=== PATIENT | male | born 1975 | race African-American/Black ===

== ENCOUNTER 2017-11-03 15:46 | Emergency (ER) | payer BC ==
[~2017-11-03] VITALS: Ht 182.9 cm; Wt 142.9 kg
[2017-11-03] MEDS ORDERED: NAPROXEN 500 MG TABLET PO ONE (16:00)
--- NOTE | 2017-11-03 16:05 | ED.ADGEN ---
Adult General Chief Complaint Chief Complaint: KNEE INJURY HPI HPI Patient is a 42 year old man, who was playing basketball, states that he planted his left leg to push off in order to throw the basketball, when he felt his knee "give", he states he is not sure exactly how it gave, denies any real twisting, denies hearing a pop, states that he ended up on the floor on his buttocks. He states he was experiencing pain from the area just below the knee Extending along the medial aspect of the leg. He states that he has pain in this location "for a long time", and was wearing a elastic knee brace for support, denies any previous injuries. He denies hitting his head or other parts of his body, states he has no numbness or tingling, is complaining of pain is about 3 out of 10, with swelling in the left knee. Has been unable to stand or weight-bear since the incident occurred approximately [id number] prior to arrival. Is able to move his toes and ankle without issue, denies pain or injury and location. No other discrete injury previously. Has not taken any medication prior to coming to the ED, states he takes l-carnitine supplements, no other medications on a regular basis. Review of Systems Review of Systems Constitutional: Denies fever or chills. [] Eyes: Denies change in visual acuity. [] HENT: Denies nasal congestion or sore throat. [] Respiratory: Denies cough or shortness of breath. [] Cardiovascular: Denies chest pain or edema. [] GI: Denies abdominal pain, nausea, vomiting, bloody stools or diarrhea. [] : Denies dysuria. [] Musculoskeletal: Denies back pain, pain in the left knee and lower extremity. Integument: Denies rash. [] Neurologic: Denies headache, focal weakness or sensory changes. [] Endocrine: Denies polyuria or polydipsia. [] Lymphatic: Denies swollen glands. [] Psychiatric: Denies depression or anxiety. [] Current Medications Current Medications Current Medications Medications (Trade) Dose Ordered Sig/Anna Start Time Stop Time Status Last Admin Dose Admin Cyclobenzaprine HCl (Flexeril) 10 mg 1X ONCE 11/03/17 16:45 11/03/17 16:46 DC 11/03/17 16:46 10 MG Naproxen (Naprosyn) 500 mg 1X ONCE 11/03/17 16:00 11/03/17 16:05 DC 11/03/17 16:37 500 MG Allergies Allergies Allergies Coded Allergies Type Severity Reaction Last Updated Verified No Known Drug Allergies 11/03/17 No Physical Exam Physical Exam Constitutional: Well developed, obese, no acute distress, non-toxic appearance. [] HENT: Normocephalic, atraumatic, bilateral external ears normal, oropharynx moist, no oral exudates, nose normal. [] Eyes: PERRLA, EOMI, conjunctiva normal, no discharge. [] Neck: Normal range of motion, no tenderness, supple, no stridor. [] Cardiovascular:Heart rate regular rhythm, no murmur, S1, S2, no rubs or gallops. [] Lungs & Thorax: Bilateral breath sounds clear to auscultation, no wheezing, rhonchi, rales. No chest wall crepitus or tenderness. [] Abdomen: Bowel sounds normal, soft, no tenderness, no rebound, rigidity, no guarding, no masses, no pulsatile masses. [] Skin: Warm, dry, no erythema, no rash. [] Back: No midline tenderness, no step-offs or deformities, no paraspinal tenderness, no CVA tenderness. [] Extremities: Patient with effusion noted, tenderness palpation on the anterior aspect of the tibia, extending around the medial aspect of the knee, patella is high riding and tilted, tenderness, laxity along the tendon, concern for rupture , no tactile patient along the lateral aspect of the knee, patient is unable to flex, is moving toes and ankle without issue, no other tenderness of the patient on anterior tibia or the posterior tibial region, aside from just below the tibial plateau, no pain along the femur or hip, no pain in any other extremities, patient is moving right extremity without issue, and bilateral upper extremity is without issue, no cyanosis, no clubbing, ROM intact, no edema. [] Neurologic: Alert and oriented X 3, normal motor function, normal sensory function, no focal deficits noted. [] Psychologic: Affect normal, judgement normal, mood normal. [] Current Patient Data Vital Signs Vital Signs Date Time Temp Pulse Resp B/P (MAP) Pulse Ox O2 Delivery O2 Flow Rate FiO2 11/03/17 17:43 78 136/69 (91) 98 Room Air 12/4/17 16:37 16 11/03/17 15:54 98.3 98.3 EKG EKG Not indicated.[] Radiology/Procedures Radiology/Procedures [][place] [address] IMAGING REPORT Signed PATIENT: BETH MCCRACKEN ACCOUNT: [id number] : 1975 LOCATION: ER AGE: 42 SEX: M EXAM STATUS: PRE ER ORD. PHYSICIAN: FRANCIS PHAM DO REASON: pain/swelling PROCEDURE: KNEE LEFT 4V Examination: 4 views of the left knee History: History of injury Comparison: None available. Findings: Mild joint space loss identified in the medial compartment. There is no acute fracture or dislocation identified. No significant knee joint effusion. Mild soft tissue stranding identified medial to the medial compartment with the soft tissue. Impression: 1. No acute osseous findings 2. Questionable mild stranding identified medial to the medial compartment, underlying ligamentous injury is not completely excluded. If there are clinical symptoms of ligamentous injury, follow-up MRI can be considered. DICTATED and SIGNED BY: BRIAN MANNING MD DATE: 11/03/171634 CC: FRANCIS PHAM DO ~ Impressions: [address] [address] IMAGING REPORT Signed PATIENT: BETH MCCRACKEN ACCOUNT: [id number] : 1975 LOCATION: ER AGE: 42 SEX: M EXAM STATUS: REG ER ORD. PHYSICIAN: FRANCIS PHAM DO REASON: Knee pain/injury PROCEDURE: CT LOWER EXTREMITY WO LEFT CT of the left lower extremity without contrast. Indication: Pain after an injury. Cannot ambulate.. . Technique: Contiguous axial images are obtained. Multiplanar reformatted images are also obtained. Exposure: One or more of the following individualized dose reduction techniques were utilized for this examination: 1. Automated exposure control 2. Adjustment of the mA and/or kV according to patient size 3. Use of iterative reconstruction technique. Comparison study: None available. Findings: Scanning is performed through the distal left femur and proximal left tibia. No evidence of an acute fracture. No bone lesion or bone destruction. The medial and lateral tibiofemoral joint spaces are intact. There is lateral patellar subluxation and slight tilt. There is an apparent high-grade tear or rupture of the proximal patellar tendon. Small joint effusion in the lateral suprapatellar recess. There is subcutaneous edema at the anterior knee. IMPRESSION: 1. Findings are compatible with tear or rupture of the proximal patellar tendon. Nonemergent MR of the knee could confirm and further characterize. 2. Lateral patellar subluxation with mild tilt. Electronically signed by: Umang Pretty MD (11/03/2017 5:27 PM) [facility] DICTATED and SIGNED BY: UMANG PRETTY MD DATE: 11/03/17 1723 CC: FRANCIS PHAM DO; SIMIN MALLOY MD ~ Course & Med Decision Making Course & Med Decision Making Pertinent Labs and Imaging studies reviewed. (See chart for details) Patient with significant tenderness along the anterior portion of the tibia, with significant effusion noted, and concern for patellar tendon injury based on examination with a high riding patella. X-ray obtained, does not reveal evidence of fracture, heart rate patella noted, after reevaluation, discussion with patient, did proceed with obtaining CT of the knee without contrast, which did reveal a proximal patellar tendon rupture, but no evidence of fracture. Images history reviewed with Dr. Mireles of orthopedics, plan for knee immobilizer , crutches, and follow-up in office, patient will require surgical repair. We' ll provide oral analgesia, patient started receive supplemental present and naproxen in the ED with significant improvement of discomfort. Knee immobilizer placed without issue, patient is agreeable this plan, patient crutch walking in the ED without issue. Patient discharged home with family, contact information for orthopedics, clear and detailed precautions and return instructions, prescriptions for hydrocodone and naproxen. Dragon Disclaimer Dragon Disclaimer This electronic medical record was generated, in whole or in part, using a voice recognition dictation system. Departure Impression: Primary Impression: Patellar tendon rupture Disposition: 01 HOME, SELF-CARE Condition: IMPROVED Scripts Hydrocodone Bit/Acetaminophen (HYDROCODONE-APAP 5-325 ) 1 Each Tablet 1 TAB PO PRN Q6HRS Y for PAIN, #12 TAB 0 Refills Prov: FRANCIS PHAM DO 11/03/17 Naproxen (NAPROSYN) 500 Mg Tablet 500 MG PO PRN BID Y for PAIN, #10 TAB Prov: FRANCIS PHAM DO 11/03/17 FRANCIS PHAM DO Nov 03, 2017 16:05
--- NOTE | 2017-11-03 16:41 | RAD ---
Examination: 4 views of the left knee History: History of injury Comparison: None available. Findings: Mild joint space loss identified in the medial compartment. There is no acute fracture or dislocation identified. No significant knee joint effusion. Mild soft tissue stranding identified medial to the medial compartment with the soft tissue. Impression: 1. No acute osseous findings 2. Questionable mild stranding identified medial to the medial compartment, underlying ligamentous injury is not completely excluded. If there are clinical symptoms of ligamentous injury, follow-up MRI can be considered.
[2017-11-03] MEDS ORDERED: CYCLOBENZAPRINE 10 MG TABLET. PO ONE (16:45)
--- NOTE | 2017-11-03 17:30 | RAD ---
CT of the left lower extremity without contrast. Indication: Pain after an injury. Cannot ambulate.. . Technique: Contiguous axial images are obtained. Multiplanar reformatted images are also obtained. Exposure: One or more of the following individualized dose reduction techniques were utilized for this examination: 1. Automated exposure control 2. Adjustment of the mA and/or kV according to patient size 3. Use of iterative reconstruction technique. Comparison study: None available. Findings: Scanning is performed through the distal left femur and proximal left tibia. No evidence of an acute fracture. No bone lesion or bone destruction. The medial and lateral tibiofemoral joint spaces are intact. There is lateral patellar subluxation and slight tilt. There is an apparent high-grade tear or rupture of the proximal patellar tendon. Small joint effusion in the lateral suprapatellar recess. There is subcutaneous edema at the anterior knee. IMPRESSION: 1. Findings are compatible with tear or rupture of the proximal patellar tendon. Nonemergent MR of the knee could confirm and further characterize. 2. Lateral patellar subluxation with mild tilt. Electronically signed by: Umang Pretty MD (11/03/2017 5:27 PM) [facility]
[2017-11-03 17:43] VITALS: BP 136/69
[2017-11-03] MEDS ORDERED: NAPR-683 PO (17:55)
[2017-11-03] MEDS ORDERED: HYDR-2758 PO (17:55)
[2017-11-07] MEDS ORDERED: OMEG1CAP66 PO (09:27)
[2017-11-07] MEDS ORDERED: GABA PO (09:27)
[2017-11-07] MEDS ORDERED: TYRO500C2 PO (09:27)
== END 2017-11-03 18:24 | disposition home or self-care (01) ==
LOC: ER 15:46
DX: S76.112A Strain of left quadriceps muscle, fascia and tendon, initial encounter (principal); X50.9XXA Other and unspecified overexertion or strenuous movements or postures, initial encounter; Y93.67 Activity, basketball; Y99.8 Other external cause status; Y92.89 Other specified places as the place of occurrence of the external cause
CPT/HCPCS: 29505; 73564; 73700; 99284

== ENCOUNTER → 2017-11-07 | Day surgery (SDC) | payer BC ==
[~2017-11-07] MED LIST: BUPIVAC MPF-EPI 0.5%-1:200000 30 ML VIAL. ONE; DESFLURANE 61 TO 120 MINUTES IH ONE; DEXAMETHASONE SOD PHOS 20 MG/5 ML VIAL. ONE; GABA PO; GLYCOPYRROLATE 1 MG/5 ML VIAL. ONE; HYDR-2758 PO; HYDROmorphone 2 MG/ML VIAL ONE; IV RINGERS,LACTATED 1000ML 1,000 ML IV SCH; KETAMINE HCL 500 MG/10 ML VIAL. ONE; KETOROLAC 30 MG/ML INJ FOR OR. INJ ONE; LABETALOL 20 MG/4 ML DISP.SYRIN. IVP PRN; LABETALOL 20 MG/4 ML DISP.SYRIN. ONE; LIDOCAINE 1% PF 2 ML VIAL. ID PRN; LIDOCAINE 2% PF Vial for OR 5 ML VIAL. ONE; MIDAZOLAM HCL/PF 2 MG/2 ML VIAL. IV PRN; MIDAZOLAM HCL/PF 2 MG/2 ML VIAL. ONE; MORPHINE SULFATE 2 MG/ML DISP.SYRIN. IV PRN; NAPR-683 PO; OMEG1CAP66 PO; ONDANSETRON PF 4 MG/2 ML VIAL. IV PRN; ONDANSETRON PF 4 MG/2 ML VIAL. ONE; PROCHLORPERAZINE 10 MG/2 ML VIAL. IV PRN; PROPOFOL 20 ML IV ONE; TYRO500C2 PO; fentaNYL PF VIAL 100 MCG/2 ML VIAL IV PRN; fentaNYL PF VIAL 100 MCG/2 ML VIAL ONE
--- NOTE | 2017-11-07 13:34 | PDOC1 ---
History and Physical Date of Admission Date of Admission DATE: 11/07/17 Identification/Chief Complaint Chief Complaint left knee pain Problems: Source Source: Chart review History of Present Illness History of Present Illness Mr. Guerrero is a 42 year old male patient with left knee pain for four days. He injured his knee planting his left leg during a layup playing basketball on 11/03. No pain at rest but flexing the knee is painful. He states his patella seems higher than where it normally is. X-rays and CT at [facility] on 11/03/17 show a high riding patella consistent with a patellar tendon rupture. Past Medical History Cardiovascular: No pertinent hx Pulmonary: No pertinent hx GI: No pertinent hx Endocrine: No pertinent hx Past Surgical History Past Surgical History right orbital fracture surgery Family History Family History: Diabetes, Heart Disease, Hypertension Social History Smoke: No ALCOHOL: occassional Drugs: Marijuana (occasionally) Current Medications Current Medications Current Medications Cefazolin Sodium/ Dextrose 50 ml @ As Directed STK-MED ONCE IV ; Start 11/07/17 at 11:53; Stop 11/07/17 at 11:54; Status DC Midazolam HCl (Versed) 2 mg PRN 1X PRN IV PRIOR TO PROCEDURE; Start 11/07/17 at 12:30; Stop 11/08/17 at 12:29 Fentanyl Citrate (Fentanyl 2ml Vial) 25 mcg PRN Q5MIN PRN IV X 2 DOSES FOR PAIN ; Start 11/07/17 at 12:30; Stop 11/08/17 at 12:29 Fentanyl Citrate (Fentanyl 2ml Vial) 50 mcg PRN Q5MIN PRN IV X 2 DOSES FOR PAIN ; Start 11/07/17 at 12:30; Stop 11/08/17 at 12:29 Ringer's Solution 1,000 ml @ 125 mls/hr Q8H IV Last administered on 11/07/17t 12:26; Start 11/07/17 at 12:25; Stop 11/08/17 at 00:24 Lidocaine HCl (Xylocaine-Mpf 1% Vial) 2 ml 1X PRN PRN ID IV START; Start at 12:30; Stop 11/08/17 at 12:29 Ondansetron HCl (Zofran) 4 mg PRN Q6HRS PRN IV NAUSEA/VOMITING; Start 11/07/17 at 12:45; Stop 11/08/17 at 12:44 Fentanyl Citrate (Fentanyl 2ml Vial) 25 mcg PRN Q5MIN PRN IV MILD PAIN; Start 11/07/17 at 12:45; Stop 11/08/17 at 12:44 Fentanyl Citrate (Fentanyl 2ml Vial) 50 mcg PRN Q5MIN PRN IV MODERATE PAIN; Start 11/07/17 at 12:45; Stop 11/08/17 at 12:44 Morphine Sulfate 1 mg PRN Q10MIN PRN IV SEVERE PAIN; Start 11/07/17 at 12:45; Stop 11/08/17 at 12:44 Ringer's Solution 1,000 ml @ 0 mls/hr Q0M IV ; Start 11/07/17 at 12:43; Stop 11/08/17 at 00:42 Lidocaine HCl (Xylocaine-Mpf 1% Vial) 2 ml PRN 1X PRN ID PRIOR TO IV START; Start 11/07/17 at 12:45; Stop 11/08/17 at 12:44 Hydromorphone HCl (Dilaudid) 0.5 mg PRN Q10MIN PRN IV SEV PAIN, Second choice; Start 11/07/17 at 12:45; Stop 11/08/17 at 12:44 Prochlorperazine Edisylate (Compazine) 5 mg PACU PRN PRN IV NAUSEA, MRX1; Start 11/07/17 at 12:45; Stop 11/08/17 at 12:44 Bupivacaine HCl/ Epinephrine Bitart (Sensorcain-Mpf Epi 0.5%-1:990873) 30 ml STK -MED ONCE .ROUTE ; Start 11/07/17 at 13:10; Stop 11/07/17 at 13:11; Status DC Active Scripts Active Hydrocodone-Apap 5-325 (Hydrocodone Bit/Acetaminophen) 1 Each Tablet 1 Tab PO PRN Q6HRS PRN Naprosyn (Naproxen) 500 Mg Tablet 500 Mg PO PRN BID PRN Reported l-Tyrosine (Tyrosine) 500 Mg Capsule 500 Mg PO DAILY Fish Oil Dr 1,000 Mg Softgel ([place]-3S/Dha/Epa/Fish Oil) 1 Each Capsule.dr 6 Each PO DAILY [Jadyn ] 1,000 Mg PO DAILY Allergies Allergies: Coded Allergies: shellfish derived (Verified Allergy, Severe, Anaphylaxis, 11/07/17) Physical Exam General: Alert, Oriented X3, Cooperative, No acute distress HEENT: Atraumatic, EOMI Lungs: Normal air movement Heart: RRR Abdomen: Soft Extremities: No clubbing, No cyanosis, No edema, Normal pulses, Other (LEFT KNEE: palpable defect of patellar tendon. Pain with any attempt at flexion. Knee at full extension in knee immobilizer. Neurovascularly intact distally. ) Skin: No rashes, No breakdown, No significant lesion Neuro: Normal speech, Sensation intact Psych/Mental Status: Mental status NL, Mood NL Vitals Vitals Vital Signs Date Time Temp Pulse Resp B/P (MAP) Pulse Ox O2 Delivery O2 Flow Rate FiO2 11/07/17 12:20 98.1 74 20 143/84 99 Room Air 98.1 Images Images X-rays and CT at [facility] on 11/03/17 show a high riding patellar and patellar tendon rupture. VTE Prophylaxis Ordered VTE Prophylaxis Devices: Yes VTE Pharmacological Prophylaxi: Yes Assessment/Plan Assessment/Plan Left patellar tendon rupture. Dr. Mireles recommended surgery with a patellar tendon repair. The risks of surgery were discussed, including infection, bleeding, blood clots, stiffness of the knee, tear of the repair or other potential surgical or anesthetic complications. All of his questions were answered and he desires to proceed. Followup 10-14 days postoperatively. TORO BARRERA Nov 07, 2017 13:34
[2017-11-07] MEDS: fentaNYL PF VIAL 100 MCG/2 ML VIAL IV PRN ×2 (15:00→15:05)
--- NOTE | 2017-11-07 15:10 | PDOC4 ---
Operative Note Operative Note Date of Procedure: November 07, 2017 Pre-Op Diagnosis: Left patellar tendon rupture (strain of tendon of anterior muscle group and lower leg level, left leg, initial encounter S86.212A) Post-Op Diagnosis: Same Procedure: Suture of infrapatellar tendon; primary (CPT code 31905) Surgeon: Raymond Mireles MD Modeling And Simulation Analyst: Disha Gonzalez PA-C Anesthesia: General EBL: 50 mL Specimens Obtained: none Complications: none Drains: none Tourniquet time: 25 minutes Indications for Procedure: The patient is a 42-year-old with a left patellar tendon rupture. I recommended primary suture repair of the infrapatellar tendon rupture. The patient and I discussed the risks, benefits and alternatives of surgery. We discussed the potential risks of rerupture, stiffness, infection, blood clots, scarring, or other potential surgical or anesthetic complications. All of the patients questions about surgery were answered, and the patient desired to proceed with surgery. Procedure in Detail: The patient was identified in the preoperative holding area. The correct left lower extremity was marked by me. The patient was taken to the operating room where general anesthesia was used. The patient was positioned supine on the operating table. Preoperative antibiotics were given intravenously. A tourniquet was placed on the upper left thigh. A timeout procedure was performed. The limb was prepared in sterile fashion from the tourniquet to the toes. Sterile drapes were applied, with an impervious stockinette over the lower leg. An Esmarch bandage was used to examine the limb. The tourniquet was inflated to 350 mmHg. A midline incision was used over the patella, patellar tendon, nearly to the tibial tubercle. Sharp dissection was used and Bovie electric cautery was used for hemostasis. A high-grade patellar tendon rupture was noted. Copious irrigation was used. Extraneous devitalized tendon fibers were removed but the majority of the tendon was left intact. A rongeur was used to prepare the inferior pole of the patella, for eventual tendon repair. #5 FiberWire suture was used in a running locking Krakw fashion, placing a medial U-shaped running locking suture, and a lateral U-shaped running locking suture. There were 4 tails coming out of the top of the tendon, with the central pair having a limb from each of the #5 sutures. 3 corresponding drill holes were planned in the patella. A 2 mm drill bit was used to create the 3 bone tunnels, from the inferior pole where the tendon had originally involved, and avoiding the joint surface, exiting the superior pole of the patella near the quadriceps tendon attachment. As each of the bone tunnels was drilled, I had my ict sales assistant Disha pass a Hewson suture passer back through the bone tunnel , exiting the inferior pole of the patella. The corresponding sutures were then passed to the superior pole of the patella through the bone tunnels. The patellar tendon was held reduced by Disha by extending the knee, and reapproximating the tendon to the bone, and then I tied the medial suture and the lateral suture, completing the suture loops and completing the repair. Copious irrigation was used. The knee was flexed to nearly 90 to confirm a secure repair. The medial and lateral retinaculum were each repaired using #1 PDS running suture. The tourniquet was released. Bovie electrocautery was used for hemostasis. The skin edges were injected with 0.5% Marcaine with epinephrine. The subcutaneous tissues were repaired with 2-0 Vicryl by my ict sales assistant. [place] were placed in the skin by my ict sales assistant. Needle and sponge counts were correct. There were no apparent complications. Sterile dressing was applied. Knee immobilizer will be used. RAYMOND MIRELES MD Nov 07, 2017 15:10
[2017-11-07] MEDS: HYDROmorphone 2 MG/ML VIAL IV PRN ×2 (15:12→15:23)
[2017-11-07 16:45] VITALS: BP 144/83
== END | disposition home or self-care (01) ==
LOC: SURG 11:28
PROVIDERS: ATTEND Orthopaedic Surgery
DX: S76.112A Strain of left quadriceps muscle, fascia and tendon, initial encounter (principal); X58.XXXA Exposure to other specified factors, initial encounter; Y93.67 Activity, basketball; Y92.89 Other specified places as the place of occurrence of the external cause; Y99.8 Other external cause status; Z83.3 Family history of diabetes mellitus; Z82.49 Family history of ischemic heart disease and other diseases of the circulatory system; F17.210 Nicotine dependence, cigarettes, uncomplicated; F90.9 Attention-deficit hyperactivity disorder, unspecified type
CPT/HCPCS: 27380; J0690; J1100; J1170; J1885; J2250; J2405; J2704; J3010; J3490; J7120; J2001